=== PATIENT | female | born 1990 | race Asian ===

== ENCOUNTER 2016-09-12 00:16 | Inpatient (IN) | payer SELFPAY ==
[~2016-09-12] VITALS: Ht 162.6 cm; Wt 60.8 kg
[2016-09-12] MEDS ORDERED: IRON65TA11 PO (00:52)
[2016-09-12] MEDS ORDERED: LACTATED RINGERS 1,000 ML IV SCH (00:52)
[2016-09-12] MEDS ORDERED: NALBUPHINE HYDROCHLORIDE 10 MG/ML VIAL IM SCH (00:55)
[2016-09-12] MEDS ORDERED: CARBOPROST 250 MCG/ML AMP IM PRN (00:55)
[2016-09-12] MEDS ORDERED: OXYTOCIN 20 UNITS/LR PREMIX 1,000 ML IV PRN (00:55)
[2016-09-12] MEDS ORDERED: MISOPROSTOL 25 MCG TAB VG PRN (00:55)
[2016-09-12] MEDS ORDERED: OXYTOCIN 10 UNITS/ML VIAL IM SCH (00:55)
[2016-09-12] MEDS ORDERED: METHYLERGONOVINE 0.2 MG/ML AMP IM PRN ×2 (00:55→08:10)
[2016-09-12] MEDS ORDERED: PROMETHAZINE 25 MG/ML VIAL IVP PRN (00:55)
[2016-09-12 01:02] VITALS: BP 111/68
[2016-09-12 01:14] LABS: BASOPHILS % (AUTO) 0.5 % (0.0-2.0); EOSINOPHILS # (AUTO) 0.1 K/uL (0-0.4); EOSINOPHILS % (AUTO) 1.2 % (0.0-4.0); HEMATOCRIT 36.4 % (36-48); HEMOGLOBIN 11.5 g/dL (12.0-16.0); LYMPHOCYTES # (AUTO) 1.6 K/uL (2.5-16.5); LYMPHOCYTES % (AUTO) 17.6 % (20.5-51.1); MEAN CORPUSCULAR HEMOGLOBIN 27 pg (27-31); MEAN CORPUSCULAR HGB CONC 32 g/dL (33-37); MEAN CORPUSCULAR VOLUME 86 fL (80-94); MONOCYTES # (AUTO) 0.6 K/uL (0.8-1.0); MONOCYTES % (AUTO) 6.8 % (1.7-9.3); NEUTROPHILS % (AUTO) 73.9 % (42.2-75.2); PLATELET COUNT (AUTO) 183 K/uL (140-450); RED BLOOD CELL COUNT(AUTO) 4.23 MIL/uL (4.20-5.40); WHITE BLOOD COUNT (AUTO) 9.3 K/uL (4.8-10.8)
[2016-09-12 01:14] LABS: APPEARANCE,URINE CLEAR (CLEAR); BILIRUBIN,URINE NEGATIVE (NEGATIVE); BLOOD, URINE NEGATIVE (NEGATIVE); COLOR,URINE YELLOW (YELLOW); LEUKOCYTE ESTERASE ,URINE TRACE (NEGATIVE); NITRITE, URINE NEGATIVE (NEGATIVE); PH,URINE 6.5 (5.0-9.0); PROTEIN,URINE NEGATIVE (NEGATIVE); UGLUCOSE NEGATIVE (NEGATIVE); UROBILINOGEN,URINE 0.2 EU/dL (0.2 - 1)
[2016-09-12] MEDS ORDERED: MISOPROSTOL 25 MCG TAB ONE (01:48)
[2016-09-12] MEDS ORDERED: OXYTOCIN 20 UNITS/LR PREMIX 1,000 ML IV ONE (01:59)
[2016-09-12 02:00] LABS: RED CELL DISTRIBUTION WIDTH 21.1 % (11.6-13.7)
[2016-09-12 02:01] LABS: BACTERIA,URINE FEW /HPF (None Seen); RBC,URINE 0-5 (RARE) /HPF (0-5); SQUAMOUS EPITHELIAL CELL,UR 0-3 (FEW) /LPF (0-3 (FEW)); WBC,URINE 0-5 (RARE) /HPF (0-5)
[2016-09-12] MEDS ORDERED: NALBUPHINE HYDROCHLORIDE 10 MG/ML VIAL ONE (04:57)
[2016-09-12] MEDS ORDERED: OXYTOCIN 10 UNITS/ML VIAL ONE (07:49)
[2016-09-12] MEDS ORDERED: LIDOCAINE 1% 50 ML ONE (08:08)
[2016-09-12] MEDS ORDERED: BENZOCAINE/MENTHOL 20%-0.5% 60 GM CAN TP PRN (08:10)
[2016-09-12] MEDS ORDERED: TEMAZEPAM 15 MG CAP PO PRN (08:10)
[2016-09-12] MEDS ORDERED: HYDROcodone/APAP 5/325 MG 1 TAB TAB PO PRN (08:10)
[2016-09-12] MEDS ORDERED: oxyCODONE/APAP 5/325 MG 1 TAB TAB PO PRN (08:10)
[2016-09-12] MEDS ORDERED: MEASLES, MUMPS, AND RUBELLA 1 VIAL SQVAC PRN (08:10)
[2016-09-12] MEDS ORDERED: SODIUM PHOSPHATE 118 ML ENEM RC PRN (08:10)
[2016-09-12] MEDS ORDERED: WITCH HAZEL 40 PAD PACKAGE TP PRN (08:10)
[2016-09-12] MEDS ORDERED: IBUPROFEN 800 MG TAB PO PRN (08:10)
--- NOTE | 2016-09-12 09:22 | NUR ---
PATIENT HAS BEEN SCREENED AND CATEGORIZED LOW NUTRITION RISK. PATIENT WILL BE SEEN WITHIN 7 DAYS OF ADMISSION. 09/18/[address]
[2016-09-12] MEDS ORDERED: DOCUSATE SOD/SENNA 50/8.6 MG 1 TAB PO SCH (21:00)
[2016-09-13 05:47] LABS: HEMATOCRIT 33.1 % (36-48); HEMOGLOBIN 10.6 g/dL (12.0-16.0)
== END 2016-09-14 13:30 | disposition home or self-care (01) | DRG 775 ==
LOC: MLD 00:16 → MFCC 10:00
PROVIDERS: ADMIT Obstetrics & Gynecology; ATTEND Obstetrics & Gynecology
PROC: 10E0XZZ Delivery of Products of Conception, External Approach (ICD-10-PCS; principal; 2016-09-12)
PROC: 10907ZC Drainage of Amniotic Fluid, Therapeutic from Products of Conception, Via Natural or Artificial Opening (ICD-10-PCS; 2016-09-12)
PROC: 0HQ9XZZ Repair Perineum Skin, External Approach (ICD-10-PCS; 2016-09-12)
PROC: 3E0234Z Introduction of Serum, Toxoid and Vaccine into Muscle, Percutaneous Approach (ICD-10-PCS; 2016-09-13)
PROC: 3E0234Z Introduction of Serum, Toxoid and Vaccine into Muscle, Percutaneous Approach (ICD-10-PCS; 2016-09-13)
DX: O70.0 First degree perineal laceration during delivery (principal); Z3A.39 39 weeks gestation of pregnancy; Z37.0 Single live birth; Z23 Encounter for immunization
CPT/HCPCS: 36415; 59409; 81001; 85018; 85025; 86592; 86886; 86900; 86901; 90707; 90715; J2001; J2300; J2590